=== PATIENT | female | born 1970 | race Caucasian/White ===

== ENCOUNTER 2024-05-05 12:11 | Emergency (ER) | payer OTHER, BC, SELFPAY ==
[2024-05-05 12:15] VITALS: BP 176/111; PULSE 90; TEMP 36.6; O2SAT 97; BMI 32.4
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
--- NOTE | 2024-05-05 12:27 | PC.NURSE ---
family at bedside. PMS intact to right distal extremity.Ice bag applied.
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
[2024-05-05] MEDS: IBUPROFEN 400 MG TABLET 800 MG PO (13:07)
[2024-05-05 13:34] VITALS: BP 130/87; PULSE 84; O2SAT 97
== END 2024-05-05 13:36 | disposition home or self-care (01) ==
PROVIDERS: Emergency Provider Emergency Medicine; PCP Nurse Practitioner
DX: S63.501A Unspecified sprain of right wrist, initial encounter (principal); S60.811A Abrasion of right wrist, initial encounter; V43.52XA Car driver injured in collision with other type car in traffic accident, initial encounter
CPT/HCPCS: 73090; 73110; 99283

== ENCOUNTER 2024-08-29 12:32 | Outpatient (OUT) | payer BC, SELFPAY ==
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
== END 2024-08-29 12:33 | disposition home or self-care (01) ==
LOC: MRI 12:32
PROVIDERS: PCP Nurse Practitioner; Visit Provider Nurse Practitioner
DX: M25.531 Pain in right wrist (principal); M19.031 Primary osteoarthritis, right wrist
CPT/HCPCS: 73218; 73221

== ENCOUNTER 2025-02-13 12:59 | Outpatient (OUT) | payer BC, SELFPAY ==
--- OUTSIDE RECORDS SUMMARY | 2024-12-15 14:30 | XMS_ITS ---
Author Organization [facility] vices Address [address] [place], [place] [id number] Care Team Providers Care Operations Support Coordinator Name Role Phone Boris Canada Unavailable [phone] REASON FOR VISIT 5 wk f.u Social History Sex Assigned At : Social History Observation Description Sex Assigned At Female Encounters Encounter Location Date Provider Diagnosis Main [address] [place], [place] [id number] 12/15/2024 Boris Canada Plan Of Treatment No Information Progress Notes * Storm LEIVAB:1970 ( 54 yo F)Acc No.[id number]:12/15/2024 Patient: Chandni CHAMBERS Provider: FLORI Reed :1970 A ge:53 Y S ex:Female Date:12/15/2024 Address:[address] [place], [place] [id number] Check In:06:16 PM EST Subjective: * Chief Complaints: * 1 . 5 wk f.u. * Medical History: Objective: * Vitals: Assessment: Plan: * Treatment: Care Plan: * Problems: * Billing Information: * Visit Code: * Procedure Codes: Care Plan Details* * Electronic signature of FLORI Walter on 02/13/2025 at 01:01 PM EDT Sign off status: Pending * Provider: FLORI Reed Date: 12/15/2024 Generated for Lizy garsia/Otis/Austinitting on: 0 02/13/2025 01:01 PM EDT
--- OUTSIDE RECORDS SUMMARY | 2025-02-09 13:00 | XMS_ITS ---
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 respirations non labored Extremities: no deformity, no trauma Neurological: oriented x 4, LOC appropriate for age, CN II-XII intact, motor strength equal & normal bilaterally, speech normal Assessment/Plan 1. Anxiety (F41.9: Anxiety disorder, unspecified) In February she self admitted her self to [facility]. she was having thought of harming herself. did not have a plan. but stood in the kitchen and thought if she stabbed herself in the neck. but then rationalized it and went to her and told him she needed to get help. pt was admitted for 2 day. she is now in counseling and seeing a psychiatrist. is doing very well. denies need for refills. will continue current doses and continue counseling, RTC 6 months for follow up and refills if needed 2. Depression (F32.A: Depression, unspecified) see above 3. Adult BMI 33.0-33.9 kg/sq m (Z68.33: Body mass index [BMI] 33.0-33.9, adult) BMI education given Orders: alprazolam, See Instructions, PRN as needed for anxiety, take half a tab as needed daily for anxiety, # 30 tab(s), Refills(s) 0, Pharmacy: [id number], 170.1, cm, 12/14/23 10:07:00 EDT, Height/Length Dosing, 95.5, kg, 12/14/23 10:07:00 EDT, Weight Dosing metoprolol, 50 mg = 1 tab(s), Oral, BID, # 180 tab(s), Refills(s) 3, Pharmacy: [id number], 170.1, cm, 12/14/23 10:07:00 EDT, Height/Length Dosing, 95.5, kg, 12/14/23 10:07:00 EDT, Weight Dosing Follow-up No qualifying data available Problem List/Past Medical History Ongoing Acid reflux Adult BMI 33.0-33.9 kg/sq m Anxiety BMI 31.0-31.9,adult Breast cancer screening by mammogram COVID-19 Depression Diverticular disease Duodenitis Fatigue Gastritis Hypercholesteremia Hypertension Hypokalemia Migraines Obesity Rheumatic fever Screening for malignant neoplasm of colon Screening for malignant neoplasm of colon done Trochanteric bursitis Wellness examination Historical Diverticulitis GERD - Gastro-esophageal reflux disease Hiatal hernia HTN - Hypertension SEUN - Obstructive sleep apnea Procedure/Surgical History Colonoscopy (2012), EGD (esophagogastroduodenoscopy) gastric outlet reduction (11/2012), Colonoscopy (02/05/2008), [facility] BSO - Total abdominal hysterectomy and bilateral salpingo-oophorectomy (2005), Arthroscopy of knee, Cholecystectomy, Laparoscopic lysis of adhesions, Laparoscopy. Medications atorvastatin 10 mg Tab, 10 mg= 1 tab(s), Oral, Daily, 3 refills busPIRone, 5 mg, Oral, TID duloxetine 60 mg oral delayed release capsule, 60 mg= 1 cap(s), Oral, Daily, 1 refills hydrochlorothiazide-irbesartan 12.5 mg-150 mg Tab, 1 tab(s), Oral, Daily, 1 refills hydrochlorothiazide-irbesartan 12.5 mg-150 mg Tab hydrOXYzine pamoate 25 mg Cap omeprazole 40 mg Cap-DR, 40 mg= 1 cap(s), Oral, Daily, 1 refills prochlorperazine 10 mg Tab, 10 mg= 1 tab(s), Oral, BID, PRN traZODONE 50 mg Tab, See Instructions Allergies Azulfidine (Anxiety) Suprax (Diarrhea) amoxicillin (Nausea) venlafaxine (Anxiety) Social History Alcohol - Denies Alcohol Use, 03/14/2023 Substance Abuse - Denies Substance Abuse, 03/14/2023 Tobacco Never (less than 100 in lifetime) Tobacco Use:. Never Smokeless Tobacco Use:. Cigarettes, 04/02/2024 Family History Heart disease: Father. Hypertension: Father, Sister and Brother. Primary malignant neoplasm of lung: Mother. Immunizations Vaccine Date Status SARS-CoV-2 (COVID-19) mRNA BNT-162b2 vax 07/15/2021 Recorded SARS-CoV-2 (COVID-19) mRNA BNT-162b2 vax 06/24/2021 Recorded influenza virus vaccine, inactivated 08/13/2019 Recorded hepatitis B adult vaccine 08/13/2019 Recorded hepatitis A-hepatitis B vaccine 05/06/2018 Recorded hepatitis A-hepatitis B vaccine 11/13/2017 Recorded influenza virus vaccine, inactivated 10/09/2017 Recorded hepatitis A-hepatitis B vaccine 10/09/2017 Recorded Result Comment: Electronical ly Signed By: Laina Santos\chani\Date and Time Signed: 04/02/24 09:49 EDT AMBULATORY VISIT SUMMARY Observed: 04/02 9:05 AM Status: F Source: [facility] Ambulatory Visit Summary SHINECHANDNI BARKSDALE :1970 Visit Date:04/02/2024 Ambulatory Visit Instructions Your Diagnosis Anxiety Depression Your Care Team Attending Physician - Laina Santos Primary Care Physician - Laina Santos This Is Your Medications List atorvastatin (atorvastatin 10 mg Tab) busPIRone duloxetine (duloxetine 60 mg oral delayed release capsule) hydrOXYzine (hydrOXYzine pamoate 25 mg Cap) hydrochlorothiazide-irbesartan (hydrochlorothiazide-irbesartan 12.5 mg-150 mg Tab) hydrochlorothiazide-irbesartan (hydrochlorothiazide-irbesartan 12.5 mg-150 mg Tab) omeprazole (omeprazole 40 mg Cap-DR) prochlorperazine (prochlorperazine 10 mg Tab) trazodone (traZODONE 50 mg Tab) Procedures Performed Colonoscopy (2012), EGD (esophagogastroduodenoscopy) gastric outlet reduction (11/2012), Colonoscopy (02/05/2008), [facility] BSO - Total abdominal hysterectomy and bilateral salpingo-oophorectomy (2005), Arthroscopy of knee, Cholecystectomy, Laparoscopic lysis of adhesions, Laparoscopy. 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 Referral Reason: Care coordination Case Type: Transition Care Management Risk Score: -- Case Status: Enrolled (March 10, 2024) Date Assigned: March 10, 2024 Assigned By: Dandy Catalan Date Enrolled: March 10, 2024 Assigned Primary Personnel: Dandy Catalan Assigned Secondary Personnel: -- Case Physician: Laina Santos Problems Ongoing Acid reflux Anxiety BMI 31.0-31.9,adult Breast cancer screening by mammogram COVID-19 Diverticular disease Duodenitis Fatigue Gastritis Hypercholesteremia Hypertension Migraines Obesity Rheumatic fever Screening for malignant neoplasm of colon Screening for malignant neoplasm of colon done Trochanteric bursitis Wellness examination Historical Diverticulitis GERD - Gastro-esophageal reflux disease Hiatal hernia HTN - Hypertension SEUN - Obstructive sleep apnea Procedure/Surgical History Colonoscopy (2012), EGD (esophagogastroduodenoscopy) gastric outlet reduction (11/2012), Colonoscopy (02/05/2008), [facility] BSO - Total abdominal hysterectomy and bilateral salpingo-oophorectomy (2005), Arthroscopy of knee, Cholecystectomy, Laparoscopic lysis of adhesions, Laparoscopy. Home Medications alprazolam 0.25 mg Tab, See Instructions, PRN atorvastatin 10 mg Tab, 10 mg= 1 tab(s), Oral, Daily, 3 refills busPIRone, 5 mg, Oral, TID duloxetine, [address] tab, Oral, Daily duloxetine 60 mg oral delayed release capsule, 60 mg= 1 cap(s), Oral, Daily, 1 refills hydrochlorothiazide-irbesartan 12.5 mg-150 mg Tab, 1 tab(s), Oral, Daily, 1 refills Metoprolol tartrate 50 mg Tab, 50 mg= 1 tab(s), Oral, BID, 3 refills omeprazole 40 mg Cap-DR, 40 mg= 1 cap(s), Oral, Daily, 1 refills prochlorperazine 10 mg Tab, 10 mg= 1 tab(s), Oral, TID, PRN traZODONE 50 mg Tab, See Instructions Allergies Azulfidine (Anxiety) Suprax (Diarrhea) amoxicillin (Nausea) venlafaxine (Anxiety) Social History Alcohol - Denies Alcohol Use, 03/14/2023 Substance Abuse - Denies Substance Abuse, 03/14/2023 Tobacco Never (less than 100 in lifetime) Tobacco Use:. Never Smokeless Tobacco Use:. Household tobacco concerns: No., 08/29/2023 Family History Heart disease: Father. Hypertension: Father, Sister and Brother. Primary malignant neoplasm of lung: Mother. Screenings and Assessments 03/10/24 11:51:00 Result Name Value Comment Phone Call Monitoring Consent Agreed to continue call Phone Verification Patient Information Full name, street address and date of verified CM Program Enrollment Provides verbal consent for enrollment Goals and Interventions Care Plan Progress Note Admit Date: 03/06/24- patient was transferred from [facility] ED to [facility] 1S Date of Discharge: 03/08/24 Follow-up appointment scheduled? yes, Jesus Girard 03/12/24 at 0920 Did you understand your discharge instructions? yes Are you able to follow them? yes Did you receive new medications? yes, Buspirone 5 mg TID, Duloxetine DR 30 mg QD in addition to 60 mg Have you filled the Rx's? yes Are you taking them as prescribed? yes Are you having difficulty eating or swallowing your pills? no Are you having any stomach upset, diarrhea or constipation? no How are you sleeping? 'pretty good, the best last night' since being d/c Are you having any pain? some lower back pain from hospital stay Do you have everything you need at home to care for yourself? yes Do you have Home Health? no Called patient for initial Transitional Care Management Program call. Readmission risk unavailable. Reviewed d/c instructions and dx of: major depressive episode, hypokalemia. Reviewed purpose and side effects of new medications with patient. Medications reconciled with patient, D/C list, and EHR. Patient states she is 'feeling well.' Reports she has 'been good' since d/c. She notes at the end of the day she is worn out, and is aware it may be the new medication. She is aware of adjustment time needed for new medicine. Reports her anxiety is 'a lot better.' Patient denies any symptoms of anxiety, thoughts of self-harm, or suicidal ideations. Notes her spouse has been wonderful and very helpful. She reports she has been utilizing the coping techniques they thought her inpt; journaling, box breathing. She enjoys yoga and meditation to help manage symptoms. She plans to get back on a routine schedule with yoga/meditation at home. Patient, spouse, and grand- daughter went for a walk at [facility] yesterday and she said it was very nice. Patient does report she had a little back pain last night from the hospital beds. States she took an Aleve because she is out of diclofenac (proposal sent to PCP). Patient takes Tylenol PRN when taking diclofenac. Patient is eating and drinking well. Patient denies any bowel or urinary system issues. Potassium upon d/c 4.4. Denies any symptoms. Patient was scheduled for TCM follow up with PCP 03/12/24 at 0920. She has an appointment with her counselor, Beckie Hurst, next Sunday. Patient notes, her counselor is working on getting her set up with a psychiatrist. CN explained TCM program and gave CN contact number. Patient denies any further questions or concerns. Communication Events Date: March 10, 2024 Method: Phone call Type: Outbound Duration (min): 11 Outcome: Case discussion Contact Type: film sound coordinator Contact Name: Dandy Catalan Notes: TCM#1- see tcm note. Created By: Dandy Catalan DISCHARGE SUMMARY Observed: 03/08/2024 11:38 AM Status: F Source: [facility] [id number]#1.00TIFF DISCHARGE SUMMARY Observed: 03/08/2024 11:38 AM Status: F Source: [facility] [id number]#1.00TIFF BASIC METABOLIC PANEL Collected: 03/08/2024 5:45 AM Status: F Source: [facility] TYPE CODE TESTS RESULT OUT OF RANGE REFERENCE UNITS LAB GLU Glucose 93 Normal 70-100 mg/dL Result Comment: Random Gluco se Reference Range is dependent on time and content of last meal. Glucose of more than 200 mg/dL in a nonstressed, ambulatory subject supports the diagnosis of Diabetes Mellitus. ADA recommended reference range LAB BUN Blood Urea Nitrogen 12 Normal 7-25 mg/dL LAB CREATT Creatinine 0.86 Normal 0.60-1.20 mg/dL LAB GFReNR Estimated GFR > 60.0 LAB NA Sodium 142 Normal 136-145 mmol/L LAB K Potassium 4.4 Normal 3.5-5.1 mmol/L LAB CL Chloride 106 Normal 98-107 mmol/L LAB CO2 Carbon Dioxide 30.1 Normal 21.0-31.0 mmol/L LAB GAP Anion Gap 10.3 Normal 6.0-15.0 LAB CA Calcium 9.6 Normal 8.6-10.3 mg/dL LAB CRCLPHA Creatinine Clr Calc Pharmacy 90.50 Result Comment: PERFORMED BY : [address] [address] PATHOLOGIST HAND EXPANSION ENVELOPE MAKER KOFI CHEUNG M.D. Performed By: #### BMP #### [address] [place] [address] [facility] HISTORY AND PHYSICAL Observed: 11:38 AM Status: F Source: [facility] [id number]#1.00TIFF HISTORY AND PHYSICAL Observed: 11:38 AM Status: F Source: [facility] [id number]#1.00TIFF ECG 12 LEAD ECG Observed: 03/07/2024 8:48 AM Status: COMPLETED Source: [facility] Main [place] [address] [place] [id number] Electrocardiograph Report Signed Patient: Chandni Riojas MR#: [id number] 7 : 1970 Acct:[id number] Age/Sex: 53 / F ADM Date: 03/06/24 Loc: Room: [address] [place] [address] Type: ADM IN Attending Dr: Raheem Corrigan MD Ordering Provider: Raheem Corrigan MD Date of Service: 03/07/24 ECG/ECG 12 lead ECG: New Admit Copies to: Test Reason : Blood Pressure : / mmHG Vent. Rate : 094 BPM Atrial Rate : 094 BPM P-R Int : 148 ms QRS Dur : 078 ms QT Int : 352 ms P-R-T Axes : 057 016 042 degrees QTc Int : 440 ms Normal sinus rhythm Normal ECG When compared with ECG of 06-MAR-2024 10:12, No significant change was found Confirmed by Joce Bess ([id number]) on 03/07/2024 12:07:29 PM Referred By: Electronically Signed By:Joce Bess Transcribed By: MUS Signed By Joce Bess MD 03/07/24 1207 LIPID PANEL Collected: 03/07/2024 5:58 AM Status: F Source: [facility] TYPE CODE TESTS RESULT OUT OF RANGE REFERENCE UNITS LAB CHOL Cholesterol 168 Normal 140-200 mg/dL Result Comment: Chol less th an 200 mg/dl low risk Chol 201-239 mg/dl borderline risk Chol 240 mg/dl and greater high risk LAB HDL HDL Cholesterol 56 Normal 23-92 mg/dL Result Comment: HDL CHOL ATP -III CLASSIFICATION Cardiovascular Risk HDL > or equal to 60 mg/dL LOW HDL < 40 mg/dL HIGH LAB TRIG W REF Triglyceride w/Reflex 107 Normal 0-149 mg/dL Result Comment: TRIG ATP III CLASSIFICATION TRIG less than 150 mg/dL Normal TRIG 150-199 mg/dL Borderline high TRIG 200-500 mg/dL High TRIG greater than 500 mg/dL Very high Standard traceable to the Center for Disease Conrtrol and Prevention (CDC) test method. LAB LDLC LDL Cholesterol,Calc ulated 91 Normal 0-100 mg/dL Result Comment: LDL ATP III CLASSIFICATION LDL less than 100 mg/dL Optimal LDL 100-129 mg/dL Near or above optimal LDL 130-159 mg/dL Borderline high LDL 160-189 mg/dL High LDL greater than 189 mg/dL Very high LAB VLDL VLDL CHOLESTEROL 21 mg/dL LAB CHLHDL Chol/HDL Ratio 3.0 <5.0 Performed By: #### [id number], TSH3 wRFLX, LIPID #### [facility] [address] [id number] [facility] THYROID STIM HORMONE W/RFLX Collected: 03/07/2024 5:58 AM Status: F Source: [facility] TYPE CODE TESTS RESULT OUT OF RANGE REFERENCE UNITS LAB TSH3 wRFLX Thyroid Stim Hormone w/Rflx 1.07 Normal 0.45-5.33 u[iU]/mL Performed By: #### [id number], TSH3 wRFLX, LIPID #### [facility] [address] [id number] [facility] VITAMIN D 25 HYDROXY TOTAL Collected: 0 03/07/2024 5:58 AM Status: F Source: [facility] TYPE CODE TESTS RESULT OUT OF RANGE REFERENCE UNITS LAB [id number] Vitamin D 25 Hydroxy Total 32.2 Normal 30-100 ng/mL Result Comment: VITAMIN D ST ATUS 25(OH)VITAMIN D RANGE (ng/mL) Deficient <20 Insufficient 20 to <30 Sufficient 30 to 100 Reference: Chung MF,Mauri NC, Reva DAMON, et al. Evaluation,treatment, and prevention of vitamin D deficiency; an Endocrine Society clinical practice guideline. JCEM. 2010; 96(7):1911-30. PERFORMED BY: [address] [address] PATHOLOGIST HAND EXPANSION ENVELOPE MAKER KOFI CHEUNG M.D. Performed By: #### [id number], TSH3 wRFLX, LIPID #### [place] [id number] [facility] HISTORY AND PHYSICAL Observed: 11:38 AM Status: F Source: [facility] [id number]#1.00TIFF DISCHARGE DOCUMENTATION Observed: 2023 11:38 AM Status: F Source: [facility] [id number]#1.00TIFF ED NOTE-PHYSICIAN Observed: 03/06/2024 11:38 AM Status: F Source: [facility] [id number]#1.00TIFF ED NOTE-PHYSICIAN Observed: 03/06/2024 11:38 AM Status: F Source: [facility] [id number]#1.00TIFF HCG,URINE Collected: 11:09 AM Status: F Source: [facility] TYPE CODE TESTS RESULT OUT OF RANGE REFERENCE UNITS LAB UHCGQ HCG Qualitative,U rine Negative Result Comment: PERFORMED BY : [place] [id number] PATHOLOGIST HAND EXPANSION EN[employer]OPE MAKER KOFI CHEUNG M.D. Performed By: #### [facility], [facility] #### [place] [id number] [place] DRUG SCREEN,URINE Collected: 03/06/2024 11:09 AM Sta tus: F Source: [facility] TYPE CODE TESTS RESULT OUT OF RANGE REFERENCE UNITS LAB URAMPS Amphetamine Screen,Urine Negative Negative LAB URBARBS Barbiturate Screen,Urine Negative Negative LAB URBENZS Benzodiazepines Screen,Urine Negative Negative LAB URCOCS Cocaine Screen,Urine Negative Negative LAB UROPIS Opiate Screen,Urine Negative Negative LAB URPCPS Phencyclidine Screen,Urine Negative Negative LAB URTHCS Cannabinoid Screen,Urine Negative Negative Result Comment: These are un confirmed results and should not be used for legal purposes. Drug Cut-Off Concentration: AMPH 1000 ng/mL DIONICIO 200 ng/mL FELIX 200 ng/mL COCM 300 ng/mL OP 300 ng/mL PCP 25 ng/mL THC 20 ng/mL PERFORMED BY: [place] [address] PATHOLOGIST HAND EXPANSION ENVELOPE MAKER KOFI CHEUNG M.D. Performed By: #### [facility], [facility] G #### [place] [address] [place] DIPSTICK AND MICROSCOPIC Collected: 11:09 AM Status: F Source: [facility] Order Comment: Name Collecti on Type:: Clean-Voided Midstream TYPE CODE TESTS RESULT OUT OF RANGE REFERENCE UNITS LAB UCOL Color,Urine Light-Yellow Yellow LAB UAPP Appearance,Uri ne Cloudy Abnormal Alert Clear LAB USG Specificy [place],Urine 1.015 Normal 1.001-1.030 LAB UPH pH,Urine 6.0 Normal 5.0-9.0 LAB ULE Leukocyte Esterase,Urine 1+ High Negative LAB UNIT Nitrite,Urine Negative Negative LAB UPRO Protein,Urine Negative Negative LAB UGL Glucose,Urine (UA) Normal Normal LAB UKET Ketones,Urine Negative Negative LAB UURO Urobilinogen,U rine Normal Normal LAB UBIL Bilirubin,Urin e Negative Negative LAB UBLD Occult Blood,Urine Negative Negative Result Comment: PERFORMED BY : [place] [address] PATHOLOGIST HAND EXPANSION EN[employer]ELOPE MAKER KOFI CHEUNG M.D. LAB URBC RBC,Urine 3-4 0-4 LAB UWBC WBC,Urine 10-19 High 0-4 LAB USQEPI Squamous Epithelial Cell,Urine 20-49 High 0-2 LAB UBACT Bacteria,Urine 1+ High None Seen LAB UHYALC Hyaline Casts,Urine None 0-8 LAB MUCUS Mucus,Urine 1+ Abnormal Alert Result Comment: PERFORMED BY : [place] [id number] PATHOLOGIST HAND EXPANSION EN[employer]ELOPE MAKER KOFI CHEUNG M.D. Performed By: #### CUU, MONIKA NUAPLUS #### [facility] [address] [place] [address] URINE CULTURE Observed: 03/06/2024 11:09 AM Status: F Source: [facility] 75,000 colonies/ml mixed bacterial skin contaminants 2 Days PERFORMED BY: [place] [address] PATHOLOGIST HAND EXPANSION ENVELOPE MAKER KOFI CHEUNG M.D. Performed By: #### CUU, MONIKA NUAPLUS #### [facility] [address] [place] [address] XR CHEST 2V* Observed: 03/06/2024 10:30 AM Status: COMPLETED Source: [facility] Main [place] [address] [place] [address] XRay Report Signed Patient: Chandni Riojas MR#: [id number] 7 : 1970 Acct:[id number] Age/Sex: 53 / F ADM Date: 03/06/24 Loc: ER Room: Type: [facility] ER Attending Dr: Copies to: Dario Jacobs APRN Ordering Provider: Dario Jacobs APRN Date of Service: 03/06/24 XR/XR chest 2V*: Psychiatric Symptoms PA AND LATERAL CHEST: CLINICAL HISTORY: Chest pain, shortness breath and anxiety COMPARISON: None Granulomatous changes are present. There is no focal parenchymal consolidation, effusion or pneumothorax. The cardiac, hilar and mediastinal silhouettes are within normal limits. There is no vascular congestion. The visualized bony thorax is intact. There is endplate spurring at the spine. XR/XR chest 2V* IMPRESSION: NO ACUTE CARDIOPULMONARY ABNORMALITY. Impression dictated by: Adriana Weems M.D.03/06/2024 10:31 AM Dictation Location: [place] [address] Transcribed By: [facility] 03/06/24 1031 Dictated By: Adriana Weems MD 03/06/24 1030 Signed By: <Electronically signed by MD Adriana Weems in OV> 03/06/24 1031 COMPLETE BLOOD COUNT AUTO DIFF Collected: 03/06/2024 10:29 AM Status: F Source: [facility] TYPE CODE TESTS RESULT OUT OF RANGE REFERENCE UNITS LAB WBC White Blood Count 7.5 Normal 3.8-11.6 10*3/uL LAB UNWBC Uncorrected WBC 7.5 Normal 3.8-11.6 10*3/uL LAB RBC Red Blood Count 4.02 Normal 3.60-5.00 LAB HGB Hemoglobin 13.5 Normal 11.8-15.4 g/dL LAB HCT Hematocrit 38.0 Normal 34.0-46.4 % LAB MCV Mean Corpuscular Volume 94.5 Normal 80-100 fL LAB MCH Mean Corpuscular Hemoglobin 33.6 Normal 24.7-34.3 pg LAB MCHC Mean Corpuscular HGB Conc 35.5 High 32.0-35.0 g/dL LAB RDW Red Cell Distribution Width 13.7 Normal 11.9-15.3 % LAB PLT Platelet Count 251 Normal 150-450 10*3/uL LAB MPV Mean Platelet Volume 8.4 Normal 6.3-10.7 fL LAB MDW Monocyte Distribution Width 19.30 Normal 0.00-20.00 % LAB NE% Neutrophils % (Auto) 71.0 . % LAB LY% Lymphocytes % (Auto) 17.3 . % LAB MO% Monocytes % (Auto) 8.9 . % LAB EO% Eosinophils % (Auto) 1.7 . % LAB BA% Basophils % (Auto) 1.1 . % LAB NRBC% NRBC% 0.3 Normal 0-0.5 /100{WBC } LAB NE# Neutrophils # (Auto) 5.3 Normal 1.8-7.7 10*3/uL LAB LY# Lymphocytes # (Auto) 1.3 Normal 1.00-4.8 10*3/uL LAB MO# Monocytes # (Auto) 0.7 Normal 0.0-0.8 10*3/uL LAB EO# Eosinophils # (Auto) 0.1 Normal 0.0-0.45 10*3/uL LAB BA# Basophils # (Auto) 0.1 Normal 0.0-0.2 10*3/uL Result Comment: PERFORMED BY : [facility] [place] [address] PATHOLOGIST HAND EXPANSION ENVELOPE MAKER KOFI CHEUNG M.D. Performed By: #### HS TROP, ETOH, CMP, CBC, CK #### [facility] [address] [id number] [facility] COMPREHENSIVE METABOLIC PANEL Collected: 03/06/2024 1 0:29 AM Status: F Source: [facility] TYPE CODE TESTS RESULT OUT OF RANGE REFERENCE UNITS LAB GLU Glucose 86 Normal 70-100 mg/dL Result Comment: Random Gluco se Reference Range is dependent on time and content of last meal. Glucose of more than 200 mg/dL in a nonstressed, ambulatory subject supports the diagnosis of Diabetes Mellitus. ADA recommended reference range LAB BUN Blood Urea Nitrogen 15 Normal 7-25 mg/d L LAB CREATT Creatinine 0.81 Normal 0.60-1.20 mg/dL LAB GFReNR Estimated GFR > 60.0 LAB NA Sodium 142 Normal 136-145 mmol/L LAB K Potassium 3.2 Low 3.5-5.1 mmol/L LAB CL Chloride 103 Normal 98-107 mmol/L LAB CO2 Carbon Dioxide 31.8 High 21.0-31.0 mmol/L LAB GAP Anion Gap 10.4 Normal 6.0-15.0 LAB CA Calcium 9.5 Normal 8.6-10.3 mg/dL LAB TP Total Protein 7.3 Normal 6.4-8.9 g/dL LAB ALB Albumin Level 4.3 Normal 3.5-5.7 g/dL LAB GLOB Globulin 3.0 g/dL LAB AGRATIO Albumin/Globulin Ratio 1.4 LAB BILIT Bilirubin,Total 0.6 Normal 0.3-1.0 mg/dL LAB AST Aspartate Amino Transferase 24 Normal 13-39 U/L LAB ALT Alanine Aminotransferase 44 Normal 7-52 U/L LAB ALP Alkaline Phosphatase 92 Normal 34-104 U/L LAB CRCLPHA Creatinine Clr C alc Pharmacy 96.09 Result Comment: PERFORMED BY : [place] [address] PATHOLOGIST HAND EXPANSION ENVELOPE MAKER KOFI CHEUNG M.D. Performed By: #### HS TROP, ETOH, CMP, CBC, CK #### [place] [id number] [facility] ETHYL ALCOHOL PROFILE Collected: 2023 10:29 AM Status: F Source: [facility] TYPE CODE TESTS RESULT OUT OF RANGE REFERENCE UNITS LAB ETHYALC Ethanol < 10 LAB ETHYLALC% Percent Ethanol Test not performed Result Comment: PERFORMED BY : [place] [address] PATHOLOGIST HAND EXPANSION ENVELOPE MAKER KOFI CHEUNG M.D. Performed By: #### HS TROP, ETOH, CMP, CBC, CK #### [address] CREATINE KINASE Collected: 10:29 AM Status: F Source: [facility] TYPE CODE TESTS RESULT OUT OF RANGE REFERENCE UNITS LAB CK Creatine Kinase 84 Normal 30-223 U/L Performed By: #### HS TROP, ETOH, CMP, CBC, CK #### [address] TROPONIN I HIGH SENSITIVITY Collected: 03/06/2024 10: 29 AM Status: F Source: [facility] TYPE CODE TESTS RESULT OUT OF RANGE REFERENCE UNITS LAB HS TROP Troponin I High Sensitivity < 2.3 Normal 0.0-15.0 Result Comment: PERFORMED BY : [place] [address] PATHOLOGIST HAND EXPANSION ENVELOPE MAKER KOFI CHEUNG M.D. Performed By: #### HS TROP, ETOH, CMP, CBC, CK #### [address] ECG 12 LEAD ECG Observed: 03/06/2024 10:12 AM Status: COMPLETED Source: [facility] [place] [address] Electrocardiograph Report Signed Patient: Chandni Riojas MR#: [id number] 7 : 1970 Acct:[id number] Age/Sex: 53 / F ADM Date: 03/06/24 Loc: Room: [address] [place] [address] Type: ADM IN Attending Dr: Raheem Corrigan MD Ordering Provider: Dario aJcobs APRN Date of Service: 03/06/24 ECG/ECG 12 lead ECG: Psychiatric Symptoms Copies to: Test Reason : Blood Pressure : / mmHG Vent. Rate : 075 BPM Atrial Rate : 075 BPM P-R Int : 172 ms QRS Dur : 068 ms QT Int : 374 ms P-R-T Axes : 056 049 045 degrees QTc Int : 417 ms Normal sinus rhythm Normal ECG No previous ECGs available Confirmed by BRO SEE DO (882) on 03/06/2024 3:40:09 PM Referred By: Electronically Signed By:BRO SEE DO Transcribed By: MUS Signed By Bro See DO 1540 ALLERGIES DATE TYPE / CODE NAME / CODE REACTION SEVERITY SOURCE 03/06/2024 Drug Allergy/4160 68960(SNOMED CT) No Known Allergies/R38190614 8(RXNORM) Unknown [facility] ALBERT118993631 (SNOMED CT) amoxicillin 1284221411 Mild (Qualifier Value) [facility] ALBERT197129646 (SNOMED CT) venlafaxine 96482190 Mild (Qualifier Value) [facility] ALBERT457100449 (SNOMED CT) Azulfidine 15786313 Moderate (Severity Modifier) (Qualifier Value) [facility] ALBERT390743029 (SNOMED CT) Suprax 251607004 Moderate (Severity Modifier) (Qualifier Value) [facility] ENCOUNTERS ADMIT/DISCHARGE ACCOUNT NUMBER ADMITTING ENCOUNTER CLASS LOCATION SOURCE 02/09/2025/02/10/20 [id number] [facility] 01/19/2025/01/20/20 [id number] Era, FIRE CODE INSPECTOR Laina L [facility] [place] [facility] 01/19/2025 [id number] Era, FIRE CODE INSPECTOR Laina L Ambulatory FTBuilding :[facility] 01/19/2025/01/20/20 [id number] [facility]ulatory [facility] [place] 01/02/2025/01/03/20 [id number] Ambulatory [facility] [place] 12/19/2024/12/20/19 [id number] Ambulatory [facility] [place]:[facility] 12/17/2024/03/26/20 25 [id number] Ambulatory Building:[facility] 12/04/2024/12/05/19 25 [id number] Ambulatory FT [facility] [place]FT [facility] 11/14/2024/11/14/19 25 [id number] Ambulatory FT [facility] [place]FT [facility] 10/10/2024/10/10/19 25 [id number] Ambulatory FT [facility] [place]FT FM [facility] 10/01/2024/10/01/19 25 [id number] Ambulatory FT [place]FT [facility] 08/06/2024/08/06/20 24 [id number] Ambulatory FT [facility] [place] [place] : CD:[id number] [address] [place] [address] 06/11/2024/06/11/20 24 [id number] Ambulatory FT [facility] [place]FT [facility] 05/14/2024/05/14/20 24 [id number] Ambulatory FT [facility] [place]FT [facility] 05/07/2024/05/07/20 24 [id number] Ambulatory FT [facility] [place] [place] : CD:[id number] [address] [place] [address] 04/30/2024/04/30/20 24 [id number] Ambulatory FT [facility] [place]FT [facility] 04/02/2024/04/02/20 24 [id number] Ambulatory FT [facility] [place]FT [facility] 03/14/2024/03/14/20 24 [id number] Ambulatory FT [facility] [place]FT [facility] 03/12/2024/03/12/20 24 [id number] Ambulatory FT [facility] [place]:[facility] 03/10/2024/03/24/20 24 [id number] STEPHEN Girard Ambulatory CD:[id number] 5Building:CD :[id number] [facility] 03/06/2024 [id number] Modesto Barber [facility] 03/06/2024/03/08/20 24 [id number] Raheem Corrigan [facility]: [id number]: 1 [facility] 11/17/2022 [id number] Ambulatory FT [facility] ding:[facility] PAYERS ENCOUNTER GUARANTOR PAYER SUBSCRIBER SOURCE 02/09/2025 CHANDNI RICHB: E ORDONEZ STTel: ~ ~(41 (HP) Primary Insurance:AnthemPoli cy Number: [id number] e Date:4449-94-21GI [address] [place], [place] [address]WP: [facility] 01/19/2025 CHANDNI RIOJASDOB: E ORDONEZ STTel: ~ ~(41 (HP) Primary Insurance:AnthemPoli cy Number: [id number] e Date:6259-45-46WQ [address] [place] [address]PO: CHANDNIStone [facility] 01/19/2025 CHANDNI RIOJASDOB: E ORDONEZ STTel: ~ ~(41 (HP) Primary Insurance:AnthemPoli cy Number: [id number] e Date:0038-85-60FP [address] [place] [address]TI: [facility]Stone [facility] 01/02/2025 CHANDNI RIOJASDOB: E ORDONEZ STTel: ~ ~(41 (HP) Primary Insurance:AnthemPoli cy Number: [id number] e Date:6289-69-52[address]F [address] [place] [address]LZ: [facility] 12/19/2024 CHANDNI S KRAUSSDOB: Mayco ORDONEZ STTel: ~ ~(41 (HP) Primary Insurance:AnthemPoli cy Number: [id number] e Date:5110-28-12[address] [address]GI: CHANDNI Baig [facility] 12/17/2024 CHANDNI Baig KRAUSSDOB: [place], [place] [address]Oaf: (HP) Primary Insurance:HEALTH DESIGN PLUSPolicy Number: [id number] Date:2022-09-24 CHANDNI GRANTUSSDOB: [id number] [place] [address] [facility] 12/04/2024 CHANDNI RIOJASDOB: Mayco ORDONEZ STTel: ~ ~(41 (HP) Primary Insurance:AnthemPoli cy Number: [id number] e Date:5674-82-68TI [address]JIBT[address] [place] [address]YC: [facility] 11/14/2024 CHANDNI S KRAUSSDOB: E JOSÉ LUIS STTel: ~ ~(41 (HP) Primary Insurance:AnthemPoli cy Number: [id number] e Date:3370-83-72VO [address]BLJHOCO [place] [address]YX: [facility] 10/10/2024 CHANDNI Baig RUDYUSSDOB: E ORDONEZ STTel: ~ ~(41 (HP) Primary Insurance:AnthemPoli cy Number: [id number] e Date:0275-06-05PJ [address] [place] [address]DV: [facility] 10/01/2024 CHANDNI Baig RUDYUSSDOB: E [address]DONEZ STTel: ~ ~(41 (HP) Primary Insurance:AnthemPoli cy Number: [id number] e Date:0646-37-82PC [address] [place] [address]ZU: [facility] 08/06/2024 CHANDNI RIOJASDOB: E ORDONEZ STTel: ~ ~(41 (HP) Primary Insurance:AnthemPoli cy Number: [id number] e Date:7873-84-13DH [address] [place] [address]IZ: [facility] 06/11/2024 CHANDNI RIOJASDOB: E ORDONEZ STTel: ~ ~(41 (HP) Primary Insurance:Miscellane ous Insurance CompanyPolicy Number: [id number] Date:2024-04-24 CHANDNI Baig [facility] 05/14/2024 CHANDNI S KRAUSSDOB: E ORDONEZ STTel: ~ ~(41 (HP) Primary Insurance:Miscellane ous Insurance CompanyPolicy Number: [id number] Date:2024-04-24 [facility] 05/07/2024 CHANDNI S RUDYUSSDOB: E ORDONEZ STTel: ~ ~(41 (HP) Primary Insurance:Miscellane ous Insurance CompanyPolicy Number: [id number] Date:2024-05-05 [facility] 04/30/2024 CHANDNI RIOJASDOB: E JOSÉ LUIS STTel: ~ ~(41 (HP) Primary Insurance:AnthemPoli cy Number: [id number] e Date:3006-16-67CO [id number] [place] [address]CF: [facility] 04/02/2024 CHANDNI RIOJASDOB: E ORDONEZ STTel: ~ ~(41 (HP) Primary Insurance:AnthemPoli cy Number: [id number] e Date:7108-61-81MK [address] [place] [address]SG: MINERVA Jovanni [facility] 03/14/2024 CHANDNI RIOJASDOB: ORCHARD STTel: ~ ~(41 (HP) Primary Insurance:AnthemPoli cy Number: [id number] e Date:1574-39-61WH [address]BSVKCSH, [place] [address]IY: MINERVA Jovanni [facility] 03/12/2024 CHANDNI RIOJASDOB: ORCHARD STTel: ~ ~(41 (HP) Primary Insurance:AnthemPoli cy Number: [id number] e Date:2261-65-66YV [address]IZZ[address] [place] [address]CT: MINERVA Jovanni [facility] 03/12/2024 Secondary Insurance:[employer] Policy Number: [id number] e Date:5109-89-66AC [address] [place] [address]WN: CHANDNI S [facility] 03/06/2024 Chandni Carvajal E José Luis [place] [phone]: (HP) Primary Insurance:Self PayPolicy Number: Effective Date:2024-03-06 [facility] 03/06/2024 Chandnistone Carvajal E [place] [phone]: (HP) Primary Insurance:[place]/BSPolicy Number: [id number] e Date:2024-03-06 Chandni RichB: [id number] [place] [address]Ukq: (HP) [facility] 03/06/2024 Secondary Insurance:Self PayPolicy Number: Effective Date:2024-03-06 [facility] 11/17/2022 CHANDNI RICHB: E JOSÉ LUIS STTel: ~(698 (HP) Primary Insurance:AnthemPoli cy Number: [id number] e Date:7604-99-94[address]AQFLV, [place] [address]EC: [facility]
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
--- OUTSIDE RECORDS SUMMARY | 2025-02-13 13:01 | XMS_ITS | Encounter Summary ---
Author Organization [facility] Address [address] [place] [address] Care Team Providers Care Tracer Lathe Set Up Operator Name Role Phone Ady Fajardo MD Primary Care Provider [phone] Encounter Details Date Type Department Care Team (Late Contact Info) Description 02/09/2025 Orders Only [facility] [address] [place] [address] Unallocated, Noms Provider, [address] [place] [address] Social History Tobacco Use Types Packs/Day Years Used Date Smoking Tobacco: Never Smokeless Tobacco: Never Alcohol Use Standard Drinks/Week Comments Yes 0 (1 standard drink = 0.6 oz pur e alcohol) caffeine: soda/pop AUDIT-C Answer Date Recorded Q1: How often do you have a drink containing alc ohol? Monthly or less 12/20/2023 Q2: How many drinks containi ng alcohol do you have on a typical day when you are drinking? 1 or 2 12/20/2023 Q3: How often do you have si x or more drinks on one occasion? Never 12/20/2023 Comments Unknown Sex and Gender Information Value Date Recorded Sex Assigned at Female 05/03/2023 3:57 PM EDT Legal Sex Female 7:07 PM EDT Gender Identity Female 05/03/2023 3:57 PM EDT Sexual Orientation Not on file documented as of this encounter Plan of Treatment Upcoming Encounters Date Type Department Care Team (Late Contact Info) Description 02/23/2025 3:00 PM EDT Office Visit [facility] [address] [place] [phone] Devyn Dallas DO [address] [place] [address] documented as of this encounter Procedures Procedure Name Priority Date/Time Associated Diagnosis Comments XR WRIST 2 VIEWS RIGHT Routine 02/09/2025 4:06 PM EDT XR FOREARM 2 VIEWS RIGHT Routine 02/09/2025 4:05 PM EDT MR FOREARM RIGHT WO IV CONTRAST Routine 02/09/2025 4:03 PM EDT documented in this encounter Results * XR WRIST 2 VIEWS RIGHT (02/09/2025 4:06 PM EDT) Anatomical Region Laterality Modality Radiographic Laura ging us Noms Provider Unallocated MD IMG XR PROCEDURES F inal Result * XR forearm 2 views right (02/09/2025 4:05 PM EDT) Anatomical Region Laterality Modality Upper Extremities, Forearm Right Radio graphic Imaging us Noms Provider Unallocated MD IMG XR PROCEDURES F inal Result * MR forearm right wo IV contrast (02/09/2025 4:03 PM EDT) Anatomical Region Laterality Modality Upper Extremities, Forearm Right Magne tic Resonance us Noms Provider Unallocated MD IMG MRI PROCEDURES Final Result documented in this encounter Visit Diagnoses Not on filedocumented in this encounter Care Teams Tracer Lathe Set Up Operator Relationship Specialty Start Date End Date Ady Fajardo MD [address] [place] [address] PCP - General Family Medicine 02/09/25 documented as of this encounter
--- OUTSIDE RECORDS SUMMARY | 2025-02-13 13:01 | XMS_ITS | Patient Health Record ---
Author Organization [facility] Address [address] [place], [place] [id number] Care Team Providers Care Certified Pesticide Applicator Name Role Phone Boris Canada Unavailable [phone] Francia Palomares Unavailable [phone] Estelle Merchant Unavailable [phone] Allergies No Known Allergies Reason For Referral No Information Medications Medication SIG (Take, Route, Frequency, Duration) Notes Start Date End Date Status DULoxetine HCl 60 MG 1 capsule Oral Once a day for 90 days to be taken with 1 capsule of 30mg total 90mg in the morning Active traZODone HCl 100 MG 1 tablet as needed at bedtime Oral bed time for 30 days pt needs visit Active Irbesartan-hydroCHLOROt hiazide 150-12.5 MG Oral for 90 Days Acti ve Capmist DM 60-15-400 MG Oral for 8 Days Not-Taking Methocarbamol 750 MG Oral for 7 Days Not-Taking Metoprolol Tartrate 50 MG Oral for 90 Days Active Azithromycin 250 MG Oral for 5 Days Not-Taking Omeprazole 40 MG Oral for 90 Days Active Prochlorperazine Maleate 10 MG Oral for 5 Days Not-Taking Pantoprazole Sodium 40 MG Oral for 90 Days Not-Taking Atorvastatin Calcium 10 MG Oral for 90 Days Active Albuterol Sulfate HFA 108 (90 Base) MCG/ACT Inhalation for 25 Days Not-Taking hydrOXYzine Pamoate 25 MG 1 capsule as needed for Anxiety Orally Twice a day for 90 days Active Atorvastatin Calcium 10 MG Oral for 90 Days Not-Taking busPIRone HCl 10 MG TAKE 1/2 TABLET UPON WAKE AND 1 TABLET AT 5-6 PM for 90 days Active Atorvastatin Calcium 10 MG Oral for 90 Days Not-Taking Ibuprofen 800 MG TAKE 1 TABLET BY MOUTH EVERY 8 HOURS NEEDED FOR PAIN Oral for 7 Days Not-Taking Social History Tobacco Use: Social History Observation Description Date Details (start date - stop date) Never Smoker NA - NA Sex Assigned At : Social History Observation Description Sex Assigned At Female Tobacco use other than smoking: Question Answer Notes Are you an other tobacco user? No Tobacco Control (Standard) Question Answer Notes Tobacco use: Nonsmoker Problems Problem Type SNOMED Code ICD Code Onset Dates Problem Status W/U Status Risk Notes Problem 277516704 BMI 32.0-32.9,adult (Z68.32) Active confirmed Problem Insomnia (538264574) Insomnia, unspecified (G47.00) Active confirmed Problem Anxiety (73821804) Anxiety (F41.9) Active confirmed Problem Depression screening (250042068) Screening for depression (Z13.31) Active confirmed Descripti on:Depres kolby screen Problem Recurrent major depression (87699270) Major depression, recurrent (F33.9) Active confirmed Problem 7590136 Non-smoker (Z78.9) Active confirmed Vital Signs Heart Rate 75 /min 12/15/2024 Respiratory Rate 18 /min 12/15/2024 Oximetry 96 % 06/04/2024 Blood pressure diastolic 81 mm Hg 12/15/2024 Height-cm 170.18 cm 12/15/2024 Weight-kg 93.89 kg 12/15/2024 Height 67.00 in 12/15/2024 Blood pressure systolic 131 mm Hg 12/15/2024 Weight 207 lbs 12/15/2024 BMI 32.42 kg/m2 12/15/2024 Encounters Encounter Location Date Provider Diagnosis [facility] [address] [place] [id number] 03/12/2024 Boris Canada Screening for depres kolby Z13.31 ; Major depression, recurrent F33.9 ; Anxiety F41.9 and Insomnia, unspecified G47.00 [facility] [address] [place] [id number] 06/04/2024 Boris Canada Anxiety F41.9 ; Betty r depression, recurrent F33.9 ; Insomnia, unspecified G47.00 and Non-smoker Z78.9 [facility] [address] [place] [id number] 08/11/2024 Francia Palomares Major depression, recurrent F33.9 ; Anxiety F41.9 ; Insomnia, unspecified G47.00 ; Non-smoker Z78.9 ; BMI 32.0-32.9,adult Z68.32 ; Dietary counseling Z71.3 and Exercise counseling Z71.82 [facility] [address] [facility] [place], [place] [id number] 11/10/2024 Boris Canada Major depression, recurrent F33.9 ; Anxiety F41.9 ; Insomnia, unspecified G47.00 ; Non-smoker Z78.9 ; Dietary counseling Z71.3 and Exercise counseling Z71.82 Main [address] [place], [place] [id number] 12/15/2024 Boris Canada Insomnia, unspecifie d G47.00 ; Anxiety F41.9 ; Major depression, recurrent F33.9 ; Non-smoker Z78.9 ; Dietary counseling Z71.3 and Exercise counseling Z71.82 [place] [address] [place] [address] 03/12/2024 Boris Canada [place] [address] [place] [address] 04/07/2024 Boris Canada Anxiety F41.9 ; Major depression, recurrent F33.9 and Insomnia, unspecified G47.00 [place] [address] [place] [address] 04/30/[address] [facility] [address] [place], [place] [id number] 07/31/2024 Estelle Merchant Assessments Encounter Date Diagnosis (ICD Code) Assessment Notes Treatment Notes Treatment Clinical Notes Section Notes 03/12/2024 Screening for depression (ICD-10 - Z13.31) Description:D epression screen Treatment options discussed. Encouraged she continue counseling sees Jason Brenner outside counseling in [facility]. Reviewed risks/benefits, major/common side effects, and alternatives of medication plan with patient, stated understanding and agreement with plan. Medication and allergy list reconciled. The patient was informed of contraindications of alcohol, THC use and side effects of any substances with medications. Antidepressant Medication: We discussed the risks/benefits and side effects of medications. I stressed in particular side effects including but not limited to gastrointestinal problems, sexual dysfunction, serotonin syndrome, agitation, rare induction of mark, rare activation of suicidality. We discussed issues related to healthy weight, diet, and sleep hygiene. Discussed the heat related illness in psychotropic medication users and advised to take precautions to avoid heatstroke and heat exhaustion. Discussed the cold related illness in psychotropic medication users and advised to take precautions to avoid adverse effects. Discussed the SE of nicotine and caffeine in sleep disturbance and anxiety. Continue Cymbalta 90mg (30mg and 60mg to be taken together) for depression and anxiety. Continue Buspar 5mg oral three times a day for anxiety. Discontinue Alprazolam 0.25mg BID PRN last took it 2 weeks ago. Start Vistaril 25mg BID PRN for anxiety. Continue Trazadone 100mg one tablet as needed at bedtime for insomnia unspecified. Encouragement and support provided. RTO in 4 weeks or PRN. Instructed to seek medical help, call 911 or go the nearest ER for evaluation if she has SI/HI, plan and intent. Patient verbalized understanding and acceptance of plan. 03/12/2024 Major depression, recurrent (ICD-10 - F33.9) Treatment options discussed. Encouraged she continue counseling sees Jason Brenner outside counseling in [facility]. Reviewed risks/benefits, major/common side effects, and alternatives of medication plan with patient, stated understanding and agreement with plan. Medication and allergy list reconciled. The patient was informed of contraindications of alcohol, THC use and side effects of any substances with medications. Antidepressant Medication: We discussed the risks/benefits and side effects of medications. I stressed in particular side effects including but not limited to gastrointestinal problems, sexual dysfunction, serotonin syndrome, agitation, rare induction of mark, rare activation of suicidality. We discussed issues related to healthy weight, diet, and sleep hygiene. Discussed the heat related illness in psychotropic medication users and advised to take precautions to avoid heatstroke and heat exhaustion. Discussed the cold related illness in psychotropic medication users and advised to take precautions to avoid adverse effects. Discussed the SE of nicotine and caffeine in sleep disturbance and anxiety. Continue Cymbalta 90mg (30mg and 60mg to be taken together) for depression and anxiety. Continue Buspar 5mg oral three times a day for anxiety. Discontinue Alprazolam 0.25mg BID PRN last took it 2 weeks ago. Start Vistaril 25mg BID PRN for anxiety. Continue Trazadone 100mg one tablet as needed at bedtime for insomnia unspecified. Encouragement and support provided. RTO in 4 weeks or PRN. Instructed to seek medical help, call 911 or go the nearest ER for evaluation if she has SI/HI, plan and intent. Patient verbalized understanding and acceptance of plan. 04/07/2024 Anxiety (ICD-10 - F41.9) 06/04/2024 Anxiety (ICD-10 - F41.9) Treatment options discussed. Encouraged she continue counseling sees Jason Brenner outside counseling in [facility]. Reviewed risks/benefits, major/common side effects, and alternatives of medication plan with patient, stated understanding and agreement with plan. Medication and allergy list reconciled. The patient was informed of contraindications of alcohol, THC use and side effects of any substances with medications. Antidepressant Medication: We discussed the risks/benefits and side effects of medications. I stressed in particular side effects including but not limited to gastrointestinal problems, sexual dysfunction, serotonin syndrome, agitation, rare induction of mark, rare activation of suicidality. We discussed issues related to healthy weight, diet, and sleep hygiene. Discussed the heat related illness in psychotropic medication users and advised to take precautions to avoid heatstroke and heat exhaustion. Discussed the cold related illness in psychotropic medication users and advised to take precautions to avoid adverse effects. Discussed the SE of nicotine and caffeine in sleep disturbance and anxiety. Continue Cymbalta 60mg (30mg discontinued by pt). Continue Buspar 5mg oral three times a day for anxiety. Continue Vistaril 25mg BID PRN for anxiety. Continue Trazadone 100mg one tablet as needed at bedtime for insomnia unspecified. Encouragement and support provided. RTO in 2months or PRN. Instructed to seek medical help, call 911 or go the nearest ER for evaluation if she has SI/HI, plan and intent. Patient verbalized understanding and acceptance of plan. 06/04/2024 Major depression, recurrent (ICD-10 - F33.9) Treatment options discussed. Encouraged she continue counseling sees Jason Brenner outside counseling in [facility]. Reviewed risks/benefits, major/common side effects, and alternatives of medication plan with patient, stated understanding and agreement with plan. Medication and allergy list reconciled. The patient was informed of contraindications of alcohol, THC use and side effects of any substances with medications. Antidepressant Medication: We discussed the risks/benefits and side effects of medications. I stressed in particular side effects including but not limited to gastrointestinal problems, sexual dysfunction, serotonin syndrome, agitation, rare induction of mark, rare activation of suicidality. We discussed issues related to healthy weight, diet, and sleep hygiene. Discussed the heat related illness in psychotropic medication users and advised to take precautions to avoid heatstroke and heat exhaustion. Discussed the cold related illness in psychotropic medication users and advised to take precautions to avoid adverse effects. Discussed the SE of nicotine and caffeine in sleep disturbance and anxiety. Continue Cymbalta 60mg (30mg discontinued by pt). Continue Buspar 5mg oral three times a day for anxiety. Continue Vistaril 25mg BID PRN for anxiety. Continue Trazadone 100mg one tablet as needed at bedtime for insomnia unspecified. Encouragement and support provided. RTO in 2months or PRN. Instructed to seek medical help, call 911 or go the nearest ER for evaluation if she has SI/HI, plan and intent. Patient verbalized understanding and acceptance of plan. 08/11/2024 Anxiety (ICD-10 - F41.9) Well and stable. Follow up in 3 months with Joyce, or as needed. 08/11/2024 Major depression, recurrent (ICD-10 - F33.9) Well and stable. Follow up in 3 months with Joyce, or as needed. 11/10/2024 Major depression, recurrent (ICD-10 - F33.9) Treatment options discussed. Encouraged she continue counseling sees Jason Brenner outside counseling in [facility]. Reviewed risks/benefits, major/common side effects, and alternatives of medication plan with patient, stated understanding and agreement with plan. Medication and allergy list reconciled. The patient was informed of contraindications of alcohol, THC use and side effects of any substances with medications. Continue Cymbalta 60mg (30mg discontinued by pt). Increase Buspar to 10mg oral one tablet upon wake and one tablet at 5-6PM for anxiety. Continue Vistaril 25mg BID PRN for anxiety. Continue Trazadone 100mg one tablet as needed at bedtime for insomnia unspecified. Encouragement and support provided. RTO in 4 weeks or PRN. Instructed to seek medical help, call 911 or go the nearest ER for evaluation if she has SI/HI. Patient verbalized understanding and acceptance of plan. 12/15/2024 Insomnia, unspecified (ICD-10 - G47.00) Treatment options discussed. Encouraged she continue counseling sees Jason Brenner outside counseling in [facility]. Reviewed risks/benefits, major/common side effects, and alternatives of medication plan with patient, stated understanding and agreement with plan. Medication and allergy list reconciled. The patient was informed of contraindications of alcohol, THC use and side effects of any substances with medications. Continue Cymbalta 60mg (30mg discontinued by pt). Continue Buspar to 10mg oral changed to half a tablet upon wake and one tablet at 5-6PM for anxiety. Continue Vistaril 25mg BID PRN for anxiety. Continue Trazadone 100mg one tablet as needed at bedtime for insomnia unspecified. Encouragement and support provided. RTO in 3months or PRN. Instructed to seek medical help, call 911 or go the nearest ER for evaluation if she has SI/HI. Patient verbalized understanding and acceptance of plan. 12/15/2024 Anxiety (ICD-10 - F41.9) Treatment options discussed. Encouraged she continue counseling sees Jason Brenner outside counseling in [facility]. Reviewed risks/benefits, major/common side effects, and alternatives of medication plan with patient, stated understanding and agreement with plan. Medication and allergy list reconciled. The patient was informed of contraindications of alcohol, THC use and side effects of any substances with medications. Continue Cymbalta 60mg (30mg discontinued by pt). Continue Buspar to 10mg oral changed to half a tablet upon wake and one tablet at 5-6PM for anxiety. Continue Vistaril 25mg BID PRN for anxiety. Continue Trazadone 100mg one tablet as needed at bedtime for insomnia unspecified. Encouragement and support provided. RTO in 3months or PRN. Instructed to seek medical help, call 911 or go the nearest ER for evaluation if she has SI/HI. Patient verbalized understanding and acceptance of plan. 12/15/2024 Major depression, recurrent (ICD-10 - F33.9) Treatment options discussed. Encouraged she continue counseling sees Jason Brenner outside counseling in [facility]. Reviewed risks/benefits, major/common side effects, and alternatives of medication plan with patient, stated understanding and agreement with plan. Medication and allergy list reconciled. The patient was informed of contraindications of alcohol, THC use and side effects of any substances with medications. Continue Cymbalta 60mg (30mg discontinued by pt). Continue Buspar to 10mg oral changed to half a tablet upon wake and one tablet at 5-6PM for anxiety. Continue Vistaril 25mg BID PRN for anxiety. Continue Trazadone 100mg one tablet as needed at bedtime for insomnia unspecified. Encouragement and support provided. RTO in 3months or PRN. Instructed to seek medical help, call 911 or go the nearest ER for evaluation if she has SI/HI. Patient verbalized understanding and acceptance of plan. 11/10/2024 Anxiety (ICD-10 - F41.9) Treatment options discussed. Encouraged she continue counseling sees Jason Brenner outside counseling in [facility]. Reviewed risks/benefits, major/common side effects, and alternatives of medication plan with patient, stated understanding and agreement with plan. Medication and allergy list reconciled. The patient was informed of contraindications of alcohol, THC use and side effects of any substances with medications. Continue Cymbalta 60mg (30mg discontinued by pt). Increase Buspar to 10mg oral one tablet upon wake and one tablet at 5-6PM for anxiety. Continue Vistaril 25mg BID PRN for anxiety. Continue Trazadone 100mg one tablet as needed at bedtime for insomnia unspecified. Encouragement and support provided. RTO in 4 weeks or PRN. Instructed to seek medical help, call 911 or go the nearest ER for evaluation if she has SI/HI. Patient verbalized understanding and acceptance of plan. 08/11/2024 Insomnia, unspecified (ICD-10 - G47.00) Well and stable. Follow up in 3 months with oJyce, or as needed. 04/07/2024 Major depression, recurrent (ICD-10 - F33.9) 06/04/2024 Insomnia, unspecified (ICD-10 - G47.00) Treatment options discussed. Encouraged she continue counseling sees Jason Brenner outside counseling in [facility]. Reviewed risks/benefits, major/common side effects, and alternatives of medication plan with patient, stated understanding and agreement with plan. Medication and allergy list reconciled. The patient was informed of contraindications of alcohol, THC use and side effects of any substances with medications. Antidepressant Medication: We discussed the risks/benefits and side effects of medications. I stressed in particular side effects including but not limited to gastrointestinal problems, sexual dysfunction, serotonin syndrome, agitation, rare induction of mark, rare activation of suicidality. We discussed issues related to healthy weight, diet, and sleep hygiene. Discussed the heat related illness in psychotropic medication users and advised to take precautions to avoid heatstroke and heat exhaustion. Discussed the cold related illness in psychotropic medication users and advised to take precautions to avoid adverse effects. Discussed the SE of nicotine and caffeine in sleep disturbance and anxiety. Continue Cymbalta 60mg (30mg discontinued by pt). Continue Buspar 5mg oral three times a day for anxiety. Continue Vistaril 25mg BID PRN for anxiety. Continue Trazadone 100mg one tablet as needed at bedtime for insomnia unspecified. Encouragement and support provided. RTO in 2months or PRN. Instructed to seek medical help, call 911 or go the nearest ER for evaluation if she has SI/HI, plan and intent. Patient verbalized understanding and acceptance of plan. 03/12/2024 Anxiety (ICD-10 - F41.9) Treatment options discussed. Encouraged she continue counseling sees Jason Brenner outside counseling in [facility]. Reviewed risks/benefits, major/common side effects, and alternatives of medication plan with patient, stated understanding and agreement with plan. Medication and allergy list reconciled. The patient was informed of contraindications of alcohol, THC use and side effects of any substances with medications. Antidepressant Medication: We discussed the risks/benefits and side effects of medications. I stressed in particular side effects including but not limited to gastrointestinal problems, sexual dysfunction, serotonin syndrome, agitation, rare induction of mark, rare activation of suicidality. We discussed issues related to healthy weight, diet, and sleep hygiene. Discussed the heat related illness in psychotropic medication users and advised to take precautions to avoid heatstroke and heat exhaustion. Discussed the cold related illness in psychotropic medication users and advised to take precautions to avoid adverse effects. Discussed the SE of nicotine and caffeine in sleep disturbance and anxiety. Continue Cymbalta 90mg (30mg and 60mg to be taken together) for depression and anxiety. Continue Buspar 5mg oral three times a day for anxiety. Discontinue Alprazolam 0.25mg BID PRN last took it 2 weeks ago. Start Vistaril 25mg BID PRN for anxiety. Continue Trazadone 100mg one tablet as needed at bedtime for insomnia unspecified. Encouragement and support provided. RTO in 4 weeks or PRN. Instructed to seek medical help, call 911 or go the nearest ER for evaluation if she has SI/HI, plan and intent. Patient verbalized understanding and acceptance of plan. 03/12/2024 Insomnia, unspecified (ICD-10 - G47.00) Treatment options discussed. Encouraged she continue counseling sees Jason Brenner outside counseling in [facility]. Reviewed risks/benefits, major/common side effects, and alternatives of medication plan with patient, stated understanding and agreement with plan. Medication and allergy list reconciled. The patient was informed of contraindications of alcohol, THC use and side effects of any substances with medications. Antidepressant Medication: We discussed the risks/benefits and side effects of medications. I stressed in particular side effects including but not limited to gastrointestinal problems, sexual dysfunction, serotonin syndrome, agitation, rare induction of mark, rare activation of suicidality. We discussed issues related to healthy weight, diet, and sleep hygiene. Discussed the heat related illness in psychotropic medication users and advised to take precautions to avoid heatstroke and heat exhaustion. Discussed the cold related illness in psychotropic medication users and advised to take precautions to avoid adverse effects. Discussed the SE of nicotine and caffeine in sleep disturbance and anxiety. Continue Cymbalta 90mg (30mg and 60mg to be taken together) for depression and anxiety. Continue Buspar 5mg oral three times a day for anxiety. Discontinue Alprazolam 0.25mg BID PRN last took it 2 weeks ago. Start Vistaril 25mg BID PRN for anxiety. Continue Trazadone 100mg one tablet as needed at bedtime for insomnia unspecified. Encouragement and support provided. RTO in 4 weeks or PRN. Instructed to seek medical help, call 911 or go the nearest ER for evaluation if she has SI/HI, plan and intent. Patient verbalized understanding and acceptance of plan. 04/07/2024 Insomnia, unspecified (ICD-10 - G47.00) 06/04/2024 Non-smoker (ICD-10 - Z78.9) Treatment options discussed. Encouraged she continue counseling sees Jason Brenner outside counseling in [facility]. Reviewed risks/benefits, major/common side effects, and alternatives of medication plan with patient, stated understanding and agreement with plan. Medication and allergy list reconciled. The patient was informed of contraindications of alcohol, THC use and side effects of any substances with medications. Antidepressant Medication: We discussed the risks/benefits and side effects of medications. I stressed in particular side effects including but not limited to gastrointestinal problems, sexual dysfunction, serotonin syndrome, agitation, rare induction of mark, rare activation of suicidality. We discussed issues related to healthy weight, diet, and sleep hygiene. Discussed the heat related illness in psychotropic medication users and advised to take precautions to avoid heatstroke and heat exhaustion. Discussed the cold related illness in psychotropic medication users and advised to take precautions to avoid adverse effects. Discussed the SE of nicotine and caffeine in sleep disturbance and anxiety. Continue Cymbalta 60mg (30mg discontinued by pt). Continue Buspar 5mg oral three times a day for anxiety. Continue Vistaril 25mg BID PRN for anxiety. Continue Trazadone 100mg one tablet as needed at bedtime for insomnia unspecified. Encouragement and support provided. RTO in 2months or PRN. Instructed to seek medical help, call 911 or go the nearest ER for evaluation if she has SI/HI, plan and intent. Patient verbalized understanding and acceptance of plan. 08/11/2024 Non-smoker (ICD-10 - Z78.9) Well and stable. Follow up in 3 months with Joyce, or as needed. 11/10/2024 Insomnia, unspecified (ICD-10 - G47.00) Treatment options discussed. Encouraged she continue counseling sees Jason Brenner outside counseling in [facility]. Reviewed risks/benefits, major/common side effects, and alternatives of medication plan with patient, stated understanding and agreement with plan. Medication and allergy list reconciled. The patient was informed of contraindications of alcohol, THC use and side effects of any substances with medications. Continue Cymbalta 60mg (30mg discontinued by pt). Increase Buspar to 10mg oral one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
--- OUTSIDE RECORDS SUMMARY | 2025-02-13 13:01 | XMS_ITS | Encounter Summary ---
Author Organization [facility] Address [address] [place] [address] Care Team Providers Care Vocational Rehabilitation Counselor Name Role Phone Ady Fajardo MD Primary Care Provider [phone] Ady Fajardo MD Primary Care Provider [phone] Encounter Details Date Type Department Care Team (Late Contact Info) Description 09/11/2024 Abstract [facility] [address] [facility] [address] [place] [address] Ady Fajardo MD [address] [place] [address] Social History Tobacco Use Types Packs/Day Years [...] Encounters Date Type Department Care Team (Late st Contact Info) Description 02/23/2025 3:00 PM EDT Office Visit [facility] [address] [place] [address] Devyn Dallas DO [address] [place] [address] documented as of this encounter Visit Diagnoses Not on filedocumented in this encounter Care Teams Vocational Rehabilitation Counselor Relationship Specialty Start Date End Date Ady Fajardo MD PCP - General Family Medicine 10/15/23 02/08/25 Ady Fajardo MD [facility] [place] [address] PCP - General Family Medicine 02/09/25 documented as of this encounter
--- OUTSIDE RECORDS SUMMARY | 2025-02-13 13:01 | XMS_ITS | Encounter Summary ---
Author Organization [facility] Address [address] [place] [address] Care Team Providers Care Orchard Manager Name Role Phone Ady Fajardo MD Primary Care Provider [phone] Ady Fajardo MD Primary Care Provider [phone] Encounter Details Date Type Department Care Team (Late Contact Info) Description 05/04/2023 Orders Only [facility] [address] [place] [address] Jamari Rowan DPM [address] [address] Social History Tobacco Use Types Packs/Day Years Used Date Smoking Tobacco: Never Alcohol Use Standard Drinks/Week Comments Yes 0 (1 standard drink = 0.6 oz pur e alcohol) drinks alcohol monthly or less Comments Unknown Sex and Gender Information Value [...] [facility] [address] [place] [id number] Devyn Dallas DO [address] [place] [address] documented as of this encounter Procedures Procedure Name Priority Date/Time Associated Diagnosis Comments US FOOT LEFT Routine 05/03/2023 9:51 AM EDT US FOOT LEFT Routine 05/03/2023 9:51 AM EDT documented in this encounter Results * US foot left (05/03/2023 9:51 AM EDT) Anatomical Region Laterality Modality Lower Extremities, Foot Left Ultrasou nd us Jamari Rowan DPBrendan IMG US PROCEDURES Final Res ult * US foot left (05/03/2023 9:51 AM EDT) Anatomical Region Laterality Modality Lower Extremities, Foot Left Ultrasou nd Jamari Rowan DPBrendan IMG US PROCEDURES Final Res ult documented in this encounter Visit Diagnoses Not on filedocumented in this encounter Care Teams Orchard Manager Relationship Specialty Start Date End Date Ady Fajardo MD PCP - General Family Medicine 10/15/23 02/08/25 Ady Fajardo MD [address] [place] [id number] PCP - General Family Medicine 02/09/25 documented as of this encounter
--- OUTSIDE RECORDS SUMMARY | 2025-02-13 13:01 | XMS_ITS | Clinical Summary ---
Author Organization [facility] Address [address] [place] [address] Care Team Providers Care Stove Mounter Name Role Phone Ady Fajardo MD Primary Care Provider [phone] Allergies Active Allergy Reactions Criticality Noted Date Comments Amoxicillin Nausea Only Low 10/15/2023 Cefixime Unknown 05/03/2023 Sulfasalazine Anxiety Medium 10/15/2023 Venlafaxine Anxiety Low 10/15/2023 Medications atorvastatin (Lipitor) 10 MG tablet Take 10 mg by mouth at bedtime. 3 Active DULoxetine (Cymbalta) [address] capsule Take 60 mg by mouth in the morning. Active irbesartan-hydr oCHLOROthiazide (Avalide) 150-12.5 MG tablet Take 1 tablet by mouth in the morning. 3 Active metoprolol tartrate (Lopressor) 50 MG tablet Take 50 mg by mouth in the morning and 50 mg before bedtime. Active prochlorperazin e (Compazine) 10 MG tablet Take 10 mg by mouth every 6 (six) hours if needed. 3 Active traZODone (Desyrel) 50 MG tablet Take 50 mg by mouth at bedtime. 3 Active methylPREDNISol one (Medrol Dospak) 4 MG tabletsIndicati ons:Left Achilles tendinitis Follow schedule on MEDROL PACK package instructions to be used as directed 21 tablet 3 Active Additional Information Patient not taking.Reported on 10/15/2023 methocarbamol (Robaxin) 750 MG tabletIndicatio ns:Lumbar contusion, initial encounter Take 1-2 tablets (750-1,500 mg) by mouth as needed at bedtime for muscle spasms for up to 7 days 14 tablet Active Encounters Date Type Department Care Team Description 02/09/2025 Orders Only [facility] [address] [place] [id number] Unallocated, Demario Hughes MD 12/17/2024 9:05 AM EDT Office Visit [facility] [address] [place] [address] Tomasz Shi DO Screening for diabetes mellitus; Screening for lipoid disorders 12/17/2024 Travel from Last 3 Months Family History Medical History Relation Name Comments Hypertension Father Cancer Mother Julia Hypertension Sibling Relation Name Status Comments Father Mother Julia Sibling Alive Social History Tobacco Use Types Packs/Day Years Used Date Smoking Tobacco: Never Smokeless Tobacco: Never Tobacco Cessation:Counseling Given: Not Answered Alcohol Use Standard Drinks/Week Comments Yes 0 [...] PM EDT Sexual Orientation Not on file Last Filed Vital Signs Vital Sign Reading Time Taken Comments Blood Pressure 150/90 10/15/2023 9:17 AM EST Pulse 87 10/15/2023 9:17 AM EST Temperature 36.5 C (97.7 F) 10/15/2023 9:17 AM EST Respiratory Rate - - Oxygen Saturation 98% 10/15/2023 9:17 AM EST Inhaled Oxygen Concentration - - Weight 94.3 kg (207 lb 12.8 oz) 10/15/2023 9:17 AM EST Height 167.6 cm (5' 6 ) 06/14/2023 4:16 PM EDT Body Mass Index 33.54 06/14/2023 4:16 PM EDT Plan of Treatment Upcoming Encounters Date Type Department Care Team (Late st Contact Info) Description 02/23/2025 3:00 PM EDT Office Visit [facility] [address] [place] [phone] Devyn Dallas DO [address] [place] [address] Health Maintenance Due Date Last Done Comments CT Colonography 1971 FIT-DNA 1971 FIT 1971 FOBT 1971 Sigmoidoscopy 1971 Pap Smear 12/17/1992 Cervical Cancer Screening 12/17/2001 HPV/Cotest 12/17/2001 Mammogram 2011 Colonoscopy 2022 2012, 02/05/2008 Colorectal Cancer Screening 2022 Influenza Vaccine (Season Ended) 2025 08/13/20 19, 10/09/2017 Procedures Procedure Name Priority Date/Time Associated Diagnosis Comments XR WRIST 2 VIEWS RIGHT Routine 02/09/2025 4:06 PM EDT XR FOREARM 2 VIEWS RIGHT Routine 02/09/2025 4:05 PM EDT MR FOREARM RIGHT WO IV CONTRAST Routine 02/09/2025 4:03 PM EDT CARDIOCHECK - LIPID AND GLUCOSE Routine 12/17/2024 3:03 PM EDT Screening for diabetes mellitus Screening for lipoid disorders from Last 3 Months Results * XR WRIST 2 VIEWS RIGHT [...] Upper Extremities, Forearm Right Magne tic Resonance [facility] Provider Unallocated IMG MRI PROCEDURES Final Result * (ABNORMAL) CARDIOCHECK - LIPID AND GLUCOSE (12/17/2024 3:03 PM EDT) CHOLESTEROL 205 <200 HDL 60 M: 35-65 F: 35-80 LDL 89 <100 TRIGLYCERIDE 278 <150 GLUCOSE 114 <100 Capillary 12/17/2024 3:03 PM EDT Tomasz Shi DO POINT OF CARE TEST ENTER/ED IT ORDERABLES Final Result from Last 3 Months [facility] Care Teams Stove Mounter Relationship Specialty Start Date End Date Ady Fajardo MD [address] [place] [address] PCP - General Family Medicine 02/09/25
--- OUTSIDE RECORDS SUMMARY | 2025-02-13 13:02 | XMS_ITS | Clinical Summary ---
Author Organization [facility] Address [id number] [address] [place] [address] Care Team Providers Care Derrick Boat Runner Name Role Phone Jenae Golden MD Primary Care Provider [phone] Allergies No known active allergies Medications metoprolol tartrate (LOPRESSOR) 50 mg tablet Take 50 mg by mouth 2 (two) times a day. Active DULoxetine (CYMBALTA) 30 mg capsule Take 50 mg by mouth daily. Active traZODone (DESYREL) 100 mg tablet Take 100 mg by mouth nightly. Active cloNIDine (CATAPRES) 0.1 mg tablet Take 1 tablet (0.1 mg total) by mouth in the morning and 1 tablet (0.1 mg total) before bedtime. Active Active Problems Problem Noted Date Diagnosed Date Atypical chest pain 07/11/2022 Social History Tobacco Use Types Packs/Day Years Used Date Smoking Tobacco: Never Smokeless Tobacco: Never Alcohol Use Standard Drinks/Week Comments Yes 0 (1 standard drink = 0.6 oz pur e alcohol) rarely Childcare Answer Date Recorded Childcare Unknown 03/05/2019 Employment Answer Date Recorded Employment Unknown 03/05/2019 Comments No Sex and Gender Information Value Date Recorded Sex Assigned at Not on file Legal Sex Female 11:49 AM EDT Gender Identity Not on file Sexual Orientation Not on file Last Filed Vital Signs Vital Sign Reading Time Taken Comments Blood Pressure 119/84 07/11/2022 3:30 PM EDT Pulse 65 07/11/2022 3:30 PM EDT Temperature 37.1 C (98.7 F) 07/11/2022 12:10 PM EDT Respiratory Rate 16 07/11/2022 3:30 PM EDT Oxygen Saturation 96% 07/11/2022 3:30 PM EDT Inhaled Oxygen Concentration - - Weight 92.5 kg (204 lb) 07/11/2022 12:10 PM EDT Height 170.2 cm (5' 7 ) 07/11/2022 12:10 PM EDT Body Mass Index 31.95 07/11/2022 12:10 PM EDT Plan of Treatment Health Maintenance Due Date Last Done Comments Depression Screening 1983 Tobacco Screening 1983 DTaP,Tdap and Td Vaccines (1 - Tdap) 12/17/1990 Zoster (Shingles) Vaccine (1 of 2) 12/17/2021 Adult BMI Screening 07/11/2023 07/11/2022 Influenza Vaccine 05/25/2025 08/13/2019, 10/09/2017 Medical Devices Not on file [place] [address] [employer] Care Teams Derrick Boat Runner Relationship Specialty Start Date End Date Jenae Golden MD PCP - General Family Medicine 01/11/21
--- NOTE | 2025-02-13 13:04 | MM_ITS ---
Patient Name: AZRA RIOJAS MR#: [id number] : 1970 Exam Date: 02/13/2025 Ordering Doctor: JADEN DE LEON . RADIOLOGY REPORT PROCEDURE: MM TOMOSYNTHESIS SCREENING BI COMPARISON: MG MAMM SCREEN TYRONE W CAD, 04/23/2018. INDICATIONS: Screening Calculator Name NCI Breast Cancer Risk Assessment Tool 5 Year Breast Cancer Risk 1.20% Lifetime Breast Cancer Risk 9.00% Personal Breast Cancer No Personal Ovarian Cancer No Treatments None Family Cancers Mother with lung cancer at age ~62. LOCATION: [facility] BREAST COMPOSITION: There are scattered areas of fibroglandular density. FINDINGS: DIAGNOSTIC CATEGORY 2--BENIGN FINDING: RIGHT BREAST: No significant suspicious finding. Multiple focal asymmetries are redemonstrated. Benign-appearing calcifications are present. LEFT BREAST: No significant suspicious finding. Multiple focal asymmetries are redemonstrated. Benign-appearing calcifications are present. Benign appearing lymph nodes are noted along the chest wall 3rd RECOMMENDATIONS: ROUTINE MAMMOGRAM AND CLINICAL EVALUATION IN 12 MONTHS. PLEASE NOTE: A NORMAL MAMMOGRAM DOES NOT EXCLUDE THE POSSIBILITY OF BREAST CANCER. A CLINICALLY SUSPICIOUS PALPABLE LUMP SHOULD BE BIOPSIED. Dictated by: Clifton Ortiz MD on 02/13/2025 at 17:07 Approved by: Clifton Ortiz MD on 02/13/2025 at 17:17
== END 2025-02-13 13:00 | disposition home or self-care (01) ==
PROVIDERS: PCP Nurse Practitioner; Visit Provider Nurse Practitioner
DX: Z12.31 Encounter for screening mammogram for malignant neoplasm of breast (principal); E78.00 Pure hypercholesterolemia, unspecified; Z80.1 Family history of malignant neoplasm of trachea, bronchus and lung
CPT/HCPCS: 77063; 77067